=== PATIENT | female | born 1990 | race Caucasian/White ===

== ENCOUNTER 2021-02-19 03:40 | Inpatient (IN) | payer OTHER ==
[2021-02-19] MEDS ORDERED: ELECTROLYTE-148 SOLN 1,000 ML IV SCH (04:15)
[2021-02-19 05:01] VITALS: BMI 39.3
[2021-02-19 06:07] LABS: BASO % 1.7 % (0-2.0); EOS % 0.7 % (0-4.5); HEMATOCRIT 31.6 % (32.4-45.2); HEMOGLOBIN 10.5 GM/dL (10.7-15.3); LYMPH % 40.7 % (8-40); MCH 28.5 pg (25.7-33.7); MCHC 33.2 g/dl (32.0-36.0); MEAN CELL VOLUME 85.8 fl (80-96); MEAN PLT VOLUME 8.6 fl (7.5-11.1); MONO % 11.1 % (3.8-10.2); NEUT % 45.8 % (42.8-82.8); PLATELET COUNT 328 10^3/uL (134-434); RBC 3.68 M/mm3 (3.60-5.2); RDW 13.5 % (11.6-15.6); WHITE BLOOD COUNT 6.5 K/mm3 (4.0-10.0)
[2021-02-19 06:27] LABS: INR 0.89 (0.83-1.09)
[2021-02-19 06:30] LABS: ACTIVATED PTT 25.2 SECONDS (25.2-36.5)
[2021-02-19 08:01] LABS: BLOOD UREA NITROGEN 9.1 mg/dL (7-18); CREATININE 0.6 mg/dL (0.55-1.3)
[2021-02-19 08:02] LABS: CALCIUM 8.9 mg/dL (8.5-10.1)
[2021-02-19] MEDS ORDERED: OXYTOCIN 20 UNITS in 0.9% NS 20 UNIT/1,000 ML INFUS.BAG IV ONE ×2 (13:02→15:46)
[2021-02-19] MEDS ORDERED: CITRIC ACID/SODIUM CITRATE 30 ML UNIT-DOSE CUP PO ONE (14:47)
[2021-02-19] MEDS ORDERED: IBUPROFEN 600 MG TABLET (FP) PO PRN (14:49)
[2021-02-19] MEDS ORDERED: ONDANSETRON 4 MG/2 ML VIAL IVPUSH PRN (14:49)
[2021-02-19] MEDS ORDERED: IBUPROFEN 800 MG/8 ML IJ IVPB PRN (14:49)
[2021-02-19] MEDS ORDERED: WITCH HAZEL 50% (TUCKS) 40 PAD/JAR PAD TP PRN (14:49)
[2021-02-19] MEDS ORDERED: ACETAMINOPHEN 325 MG TABLET (FP) PO PRN ×2 (14:49)
[2021-02-19] MEDS ORDERED: METHYLERGONOVINE MALEATE 0.2 MG/1 ML AMP IM PRN (14:49)
[2021-02-19] MEDS ORDERED: morphine SULFATE/PF 1 MG/2 ML (2cc Syringe - QUVA) EP ONE (14:49)
[2021-02-19] MEDS ORDERED: OXYTOCIN 20 UNITS in 0.9% NS 20 UNIT/1,000 ML INFUS.BAG IV SCH (15:00)
[2021-02-19] MEDS ORDERED: DEXTROSE 5%-LACTATED RINGERS 1,000 ML IV SCH (15:00)
[2021-02-19 15:02] LABS: CORD BASE EXCESS -2.9 mmol/L (0-2); CORD HCO3 23.8 mmHg (20-29); CORD PCO2 49.4 mmHg (30-78); CORD pH 7.301 (7.14-7.44)
[2021-02-19 15:04] LABS: CORD HCO3 24.7 mmHg (20-29); CORD PCO2 57.7 mmHg (30-78); CORD pH 7.249 (7.14-7.44)
[2021-02-20] MEDS ORDERED: oxyCODONE HCL 5 MG TABLET PO PRN (02:49)
[2021-02-20 08:23] LABS: BASO % 0.4 % (0-2.0); EOS % 0.4 % (0-4.5); HEMATOCRIT 26.1 % (32.4-45.2); HEMOGLOBIN 8.8 GM/dL (10.7-15.3); LYMPH % 30.7 % (8-40); MCHC 33.9 g/dl (32.0-36.0); MEAN CELL VOLUME 85.6 fl (80-96); MEAN PLT VOLUME 8.4 fl (7.5-11.1); MONO % 11.2 % (3.8-10.2); NEUT % 57.3 % (42.8-82.8); PLATELET COUNT 275 10^3/uL (134-434); RBC 3.05 M/mm3 (3.60-5.2); RDW 13.6 % (11.6-15.6)
[2021-02-20] MEDS: ENOXAPARIN NA (PORCINE) 40 MG/0.4 ML DISP.SYRIN SQ SCH (09:49)
[2021-02-20] MEDS: PRENATAL VITAMINS W/ FOLIC ACID TABLET (FP) PO SCH (09:49)
[2021-02-20] MEDS: IBUPROFEN 600 MG TABLET (FP) PO PRN (14:49)
[2021-02-20] MEDS ORDERED: BISACODYL 10 MG SUPP.RECT RC PRN (14:49)
[2021-02-20] MEDS: oxyCODONE HCL 5 MG TABLET PO PRN ×2 (17:25→22:51)
[2021-02-21] MEDS: SIMETHICONE 80 MG TAB.CHEW (FP) PO PRN ×2 (04:48→19:55)
[2021-02-21] MEDS: oxyCODONE HCL 5 MG TABLET PO PRN ×3 (04:48→21:51)
[2021-02-21] MEDS: IBUPROFEN 600 MG TABLET (FP) PO PRN ×2 (08:10→19:54)
[2021-02-21] MEDS: PRENATAL VITAMINS W/ FOLIC ACID TABLET (FP) PO SCH ×2 (08:10→09:27)
[2021-02-21] MEDS: ENOXAPARIN NA (PORCINE) 40 MG/0.4 ML DISP.SYRIN SQ SCH ×2 (08:11→09:27)
[2021-02-21 08:23] LABS: BASO % 0.5 % (0-2.0); EOS % 0.9 % (0-4.5); HEMATOCRIT 27.1 % (32.4-45.2); HEMOGLOBIN 9.2 GM/dL (10.7-15.3); LYMPH % 26.5 % (8-40); MCHC 33.9 g/dl (32.0-36.0); MEAN CELL VOLUME 85.5 fl (80-96); MONO % 8.5 % (3.8-10.2); NEUT % 63.6 % (42.8-82.8); PLATELET COUNT 300 10^3/uL (134-434); RBC 3.17 M/mm3 (3.60-5.2); RDW 13.4 % (11.6-15.6); WHITE BLOOD COUNT 8.2 K/mm3 (4.0-10.0)
[2021-02-22] MEDS: SIMETHICONE 80 MG TAB.CHEW (FP) PO PRN ×2 (05:03→09:45)
[2021-02-22] MEDS: IBUPROFEN 600 MG TABLET (FP) PO PRN ×2 (05:03→09:45)
[2021-02-22 07:57] LABS: BASO % 0.5 % (0-2.0); EOS % 2.4 % (0-4.5); HEMATOCRIT 29.3 % (32.4-45.2); HEMOGLOBIN 9.9 GM/dL (10.7-15.3); LYMPH % 32.9 % (8-40); MCH 29.1 pg (25.7-33.7); MEAN CELL VOLUME 85.6 fl (80-96); MEAN PLT VOLUME 7.9 fl (7.5-11.1); MONO % 9.3 % (3.8-10.2); NEUT % 54.9 % (42.8-82.8); PLATELET COUNT 321 10^3/uL (134-434); RBC 3.42 M/mm3 (3.60-5.2); RDW 13.6 % (11.6-15.6); WHITE BLOOD COUNT 6.5 K/mm3 (4.0-10.0)
[2021-02-22 09:00] VITALS: BP 125/85; PULSE 85; TEMP 97.7
[2021-02-22] MEDS: PRENATAL VITAMINS W/ FOLIC ACID TABLET (FP) PO SCH (09:45)
[2021-02-22] MEDS: ENOXAPARIN NA (PORCINE) 40 MG/0.4 ML DISP.SYRIN SQ SCH (09:45)
== END 2021-02-22 14:20 | disposition home or self-care (01) | DRG 788 ==
LOC: JLDR 03:40 → J3W 16:30
PROVIDERS: ADMIT Obstetrics & Gynecology; ATTEND Obstetrics & Gynecology
PROC: 10D00Z1 Extraction of Products of Conception, Low, Open Approach (ICD-10-PCS; principal; 2021-02-19)
DX: O34.211 Maternal care for low transverse scar from previous cesarean delivery (principal); N85.8 Other specified noninflammatory disorders of uterus; O99.214 Obesity complicating childbirth; O99.02 Anemia complicating childbirth; O42.92 Full-term premature rupture of membranes, unspecified as to length of time between rupture and onset of labor; Z3A.39 39 weeks gestation of pregnancy; Z37.0 Single live birth
CPT/HCPCS: 36415; 36600; 80048; 82803; 85025; 85610; 85730; 86780; 86850; 86900; 86901; 88307-TC; C9803; U0003; U0005